=== PATIENT | male | born 1990 ===

== ENCOUNTER 2023-04-17 14:18 | Outpatient (AMB) | payer SELFPAY ==
--- NOTE | 2023-04-17 14:26 | MHC.OFFWIV ---
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 Patient Tobacco Use Status: Never used Tobacco Allergies No Known Allergies Allergy (Verified 04/17/23 14:48) Medication List - Last Reconciled 04/17/23 by Jose A Lujan MD No Known Home Meds Do you need a note to return to daycare/school/sports/work: No HPI EQUIPMENT COORDINATOR achilles injury (lobby) HPI Details 33-year-old male presents to the office for a sick visit. Patient is complaining of pain and swelling in the left ankle. Four weeks ago, while playing tennis patient felt a pop at the back of his ankle. He experienced sharp pain and stop playing immediately. Subsequently he has been limping and has been trying [id number] anti inflammatories. he works from home and his mom mobility was limited. His symptoms were slowly improving on rest and not bearing weight. over the weekend, patient slipped again on the ground in front of his house and re-injured his ankle again. He is now using crutches to ambulate. [facility] Social History Patient Tobacco Use Status: Never used Tobacco Physical Exam Vital Signs: Last Vital Signs Pulse 82 04/17/23 14:30 BP 140/100 H 04/17/23 14:30 Pulse Ox 98 04/17/23 14:30 Oxygen Delivery Method Room Air 04/17/23 14:30 Extrem Other: Left ankle: Tenderness over the Achillis tendon. Pain on flexion and extension of the foot. Unable to stand on his heels. Assessment & Plan Assessment & Plan (1) Achilles tendinitis, left leg: Code(s): M76.62 - Achilles tendinitis, left leg Plan: X-ray images personally reviewed by me. Anti-inflammatories called in. Patient is going to need a better splint. Orthopedic appointment has been Requested. Orders: Orders XR foot LT min 3V Today M76.62 - Achilles tendinitis, left leg Coding Level of Care Code Est Pt Level 4 (22237) Diagnoses Achilles tendinitis, left leg M76.62
[2023-04-17 14:30] VITALS: BP 140/100; PULSE 82; O2SAT 98
== END 2023-04-17 15:00 | disposition home or self-care (01) ==
PROVIDERS: Visit Provider Internal Medicine
DX: M76.62 Achilles tendinitis, left leg (principal)
CPT/HCPCS: 99214

== ENCOUNTER 2023-04-17 14:47 | Outpatient (REF) | payer SELFPAY ==
--- NOTE | ~2023-04-17 | XR_ITS ---
EXAMINATION: XR FOOT, LEFT CLINICAL INFORMATION: Achilles tendinitis COMPARISON: None available. TECHNIQUE: AP, lateral, and oblique views of the left foot. FINDINGS: The bones and soft tissues are normal. No fracture. Alignment is anatomic. Joint spaces are maintained. XR/XR foot LT min 3V IMPRESSION: Normal left foot.
== END 2023-04-17 14:48 | disposition home or self-care (01) ==
LOC: HO.HMGCX 14:47
PROVIDERS: Visit Provider Internal Medicine
DX: M76.62 Achilles tendinitis, left leg (principal)
CPT/HCPCS: 73630

== ENCOUNTER 2023-05-08 09:45 | Outpatient (AMB) | payer SELFPAY ==
--- NOTE | 2023-05-08 09:51 | A.OFFVIS_ITS ---
Intake Vital Signs 05/08/23 10:15 Height 6 ft 2 in Weight 205 lb BMI 26.3 Intake Visit Reasons: New Pt - Left Achilles Injury Intake Note: Adam is a 33 year old male who presents today as a new patient with complaints of a left Achilles Tendon injury. About two months ago he was running when he felt a pop, 03/16/23 he was walking on gravel and felt another pop. Patient reports that he is feeling better since the second injury. He is feeling significant tightness, with no pain. He is ambulating with crutches . Denies numbness and tingling. He has not done any PT. Allergies No Known Allergies Allergy (Verified 04/17/23 14:48) HPI New Pt - Left Achilles Injury HPI Details Adam is a 33 year old man who presents with ~2 months left ankle pain. He was playing Tennis ~2 months ago and felt pain in his ankle. His symptoms improved with rest, NSAIDs, and non-WB. He re-injured his ankle on 04/15/23 while walking on uneven ground, and his pain returned. He has been using crutches to walk since this date. He complains primarily of tightness in his ankle, and denies any current pain. He continues to use crutches to move around & has been wearing an ankle brace. He denies any PT. He denies any numbness or tingling. He says he has been active playing sports and exercising his whole life and denies any injuries prior to this. He wants to be able to play with his young son He says he is moving sometime next week and is concerned if he can due this. [facility] Social History (Updated 05/08/23 @ 10:15 by Sabi Valero [facility]) Patient Tobacco Use Status: Never used Tobacco Current occupational status: employed Current occupation: Court [employer] Review of Systems Const All systems reviewed & are unremarkable except as noted in HPI and below Physical Exam Vital Signs: BMI result Body Mass Index 26.3 Const General: no acute distress, alert and awake Orientation/consciousness: patient oriented x3 HEENT Head: Yes normocephalic and Yes atraumatic Eyes EOM: EOMs intact bilaterally Resp Effort & Inspection: normal respiratory effort and able to speak in complete s entences Cardio Jugular venous distension: no JVD Skin General skin exam: turgor normal Rashes: no rashes Neuro General: patient oriented x3 Extrem Other: Left Ankle: + Falk test Palpable achilles defect Psych Appearance: grossly normal Affect: normal affect Attitude: cooperative Assessment & Plan Assessment & Plan (1) Achilles tendon tear: Code(s): S86.019A - Strain of unspecified Achilles tendon, initial encounter Plan: This is a 33 year old man with a left achilles tendon tear, following an injury ~7 weeks ago. He denies any pain but complains of stiffness in his ankle and an inability to weight-bear. He has been non-WB, wearing an ankle brace, and ambulating using crutches. He denies any prior treatment. I discussed his diagnosis and treatment options. Acute repair would not be possible, he is leaving the area as well, and I do not think surgery would benefit him at this time. I recommend PT and he discontinue his crutches. He is moving to [place] next week and I recommend he follow up with a billing collections specialist after his move. He was fitted for a walking boot with a heel lift to wear with ambulation. He can follow up prn. Plan Scribed for Jakob Larson MD by Julio C Bush, medical technicians, on 05/08/23 at 10:35 AM, EST. Coding Level of Care Code New Pt Level 4 (60234) Diagnoses Achilles tendon tear S86.019A
[2023-05-08 10:15] VITALS: BMI 26.3
== END 2023-05-08 10:46 | disposition home or self-care (01) ==
PROVIDERS: Visit Provider Orthopaedic Surgery
DX: S86.012A Strain of left Achilles tendon, initial encounter (principal)
CPT/HCPCS: 99203

== ENCOUNTER → 2023-05-08 09:45 | Outpatient (BNVA) | payer SELFPAY | PROVIDERS: Visit Provider Orthopaedic Surgery ==